=== PATIENT | male | born 1955 | race Caucasian/White ===

== ENCOUNTER → 2016-05-16 | Outpatient (CLI) | payer BC ==
[~2016-05-16] MED LIST: AMBIEN CR PO; BYSTOLIC20 MG PO; CRESTOR PO; EXFORGE; FLEXERIL PO; GLUCOSAMINE500 M1 DOB; NORVASC PO; OXYCONTIN PO; TRILIPIX135 MG PO; ZETIA PO
--- NOTE | ~2016-05-16 | CT134 ---
[facility] A Service of [facility] & [facility] RADIOLOGY TEXT RESULTS PATIENT: DONALD DICKENS LOCATION: [facility] : 51 UNIT #: [id number] AGE: [address]: Jc Bond MD SEX: M ORDER DR: [id number] [facility]. [place], [place] [address] [id number] O MR#: [id number] Acc #: [id number] NAME: DONALD DICKENS : 1955 SEX: M STUDY DATE/TIME: 05/16/2016 7:58 UNIT: [facility] ROOM: STUDY DESCRIPTION: CT Guide Attending Physician: Jc Bond M.D. Ordering Physician: Jc Bond M.D. Primary Care Physician: Lloyd Diaz M.D. MEDICAL IMAGING REPORT This report is preliminary unless electronic signature is present EXAM CT-guided bone marrow biopsy, 05/16/2016. INDICATIONS Monoclonal gammopathy. PROCEDURE The risks, benefits, and alternatives of the procedure were explained to the patient, and signed, informed consent was obtained. The patient was placed prone on the CT scanner gantry, and preliminary CT scan was performed through the region of interest. An appropriate site overlying the patient's left iliac bone was selected, and the overlying skin was marked. The patient was prepped and draped in the usual sterile fashion. A time-out was performed, as per protocol. The skin and subcutaneous tissues was anesthetized with buffered lidocaine. A coaxial needle was advanced into the left iliac bone. Repeat CT scan confirmed appropriate position of the needle, which was subsequently advanced into the left iliac bone. Bone marrow aspirate was obtained. Needle was advanced further into the bone marrow and then removed, which appeared to yield an good core sample. Patient tolerated the procedure well, and there were no immediate complications. He did receive conscious sedation consisting of 5 mg of Versed and 150 mcg of fentanyl, and continuous monitoring was provided throughout the procedure. IMPRESSION Technically successful bone marrow biopsy and aspiration, as noted above. Ct was used during the procedure, and permanent images were saved. Please note that the patient remained awake and alert during the entire procedure. He did complain of some pain associated with the procedure, despite the administration of 5 mg of Versed and 150 mcg of fentanyl. Given relative tolerance to pain medications, I would suggestive anesthesia consultation prior to any additional interventions on this patient. [facility] A Service of [facility] RADIOLOGY TEXT RESULTS PATIENT: DONALD DICKENS LOCATION: [facility] : 51 UNIT #: [id number] AGE: [address]: Jc Bond MD SEX: M ORDER DR: Dictated by... Saira Mack M.D. THIS IS AN ELECTRONICALLY VERIFIED REPORT Saira Mack M.D. at 05/18/2016 10:37 AM MUMTAZ/sunshine TD: 05/17/2016 18:51 JOB #: [id number] MEDICAL IMAGING REPORT COPY
[2016-05-16 06:46] LABS: HEMATOCRIT 43.4 % (38.0-50.0); HEMOGLOBIN 14.5 gm/dL (13.0-16.0); MEAN CELL VOLUME 89.8 FL (83-96); MEAN CORPUSCULAR HGB CONC 33.4 g/dL (30-36); MEAN PLATELET VOLUME 7.4 FL (6.5-11.5); RED BLOOD COUNT 4.83 X10e (3.90-5.60); WHITE BLOOD COUNT 4.1 X10e3 (4.0-10.5)
[2016-05-16 07:04] LABS: INR 1.1; PARTIAL THROMBOPLASTIN TIME 23.8 SECONDS (23.5-31.3); PROTHROMBIN TIME (PATIENT) 11.4 SECONDS (9.6-11.5)
== END | disposition home or self-care (01) ==
LOC: CIVR 06:16
PROVIDERS: Internal Medicine Hematology & Oncology
DX: D47.2 Monoclonal gammopathy (principal); I10 Essential (primary) hypertension; E29.1 Testicular hypofunction; Z88.0 Allergy status to penicillin; Z80.0 Family history of malignant neoplasm of digestive organs; Z80.3 Family history of malignant neoplasm of breast
CPT/HCPCS: 38221; G0364; 36415; 77012; 85027; 85610; 85730; 88305; 88311; 88313; 99144; 99152; 99153; J2250; J3010